=== PATIENT | male | born 1970 | race African-American/Black ===

== ENCOUNTER 2017-01-31 18:52 | Inpatient (IN) | payer MEDICAID, OTHER ==
[~2017-01-31] VITALS: Ht 167.6 cm; Wt 81.8 kg
[~2017-01-31 18:52] MED LIST: ASPI-986 PO; HYDR100T26 PO; LOSA100T14 PO; NEBI10TA2 PO; SERT50TA12 PO; SIMV40TA5 PO
[2017-01-31] MEDS ORDERED: SODIUM CHLORIDE 0.9% 500 ML IV ONE (19:28)
[2017-01-31] MEDS ORDERED: MORPHINE SULFATE 4 MG/ML CPJ (NOT FOR IM USE) IV STA (19:28)
[2017-01-31] MEDS ORDERED: ONDANSETRON HCL 4MG/2ML VIAL IV STA (19:28)
[2017-01-31 19:52] LABS: BASOPHILS % 1.1 % (0.0-2.0); EOSINOPHILS % 3.1 % (0.0-5.0); HEMATOCRIT. 40.4 % (42.0-52.0); HEMOGLOBIN. 13.3 g/dL (14.0-18.0); LYMPHOCYTES % 32.9 % (20.0-50.0); MEAN CORPUSCULAR HEMOGLOBIN 27.1 pg (28.0-32.0); MEAN PLATELET VOLUME 8.6 fl (7.4-10.4); MONOCYTES % 8.7 % (2.0-8.0); NEUTROPHILS % 54.2 % (40.0-76.0); PLATELET 161 x1000/uL (130-400); RED BLOOD CELL COUNT 4.93 mill/uL (4.7-6.1); RED CELL DISTRIBUTION WIDTH 15.3 % (11.6-14.6)
[2017-01-31 20:03] LABS: D-DIMER 0.21 mg/L FEU (<0.50); INR 1.1; PARTIAL THROMBOPLASTIN TIME 27.1 sec (24.0-34.0); PROTHROMBIN TIME 11.5 sec
[2017-01-31 20:08] LABS: CARBON DIOXIDE 28 mEq/L (21-32); CHLORIDE 109 mEq/L (98-107); TROPONIN I < 0.02 ng/mL (0.00-0.04)
[2017-01-31 20:56] LABS: CLARITY URINE CLEAR (CLEAR); COLOR URINE YELLOW (YELLOW); GLUCOSE URINE NEGATIVE (NEGATIVE); KETONES URINE NEGATIVE (NEGATIVE); LEUKOCYTE ESTERASE URINE NEGATIVE (NEGATIVE); NITRITE URINE NEGATIVE (NEGATIVE); OCCULT BLOOD URINE NEGATIVE (NEGATIVE); PH URINE 5.5 (4.5-8.0); PROTEIN URINE TRACE (NEGATIVE); SPECIFIC GRAVITY URINE 1.021 (1.005-1.030); UROBILINOGEN URINE 0.2 E.U./dL (0.2-1.0)
[2017-01-31 21:08] LABS: *AMPHETAMINES SCREEN URINE NEGATIVE (NEGATIVE); *BARBITURATES SCREEN URINE NEGATIVE (NEGATIVE); *BENZODIAZEPINES SCREEN URINE NEGATIVE (NEGATIVE); *COCAINE SCREEN URINE NEGATIVE (NEGATIVE); CANNABINOID URINE SCREEN NEGATIVE (NEGATIVE); METHADONE URINE SCREEN NEGATIVE (NEGATIVE); OPIATES URINE SCREEN NEGATIVE (NEGATIVE); PHENCYCLIDINE URINE SCREEN NEGATIVE (NEGATIVE)
[2017-01-31 22:11] VITALS: BP 144/119
[2017-01-31 22:20] VITALS: BP 144/119
[2017-01-31] MEDS ORDERED: LOSA100T14 PO (23:16)
[2017-01-31] MEDS ORDERED: ISOS30TA6 PO (23:16)
[2017-01-31] MEDS ORDERED: CARV3.1242 PO (23:16)
[2017-01-31] MEDS ORDERED: CLOP75TA33 PO (23:16)
[2017-01-31] MEDS ORDERED: TRIA1CAP6 PO (23:35)
[2017-02-01] MEDS ORDERED: ACETAMINOPHEN 325MG TABLET PO PRN ×2 (00:15→10:00)
[2017-02-01] MEDS ORDERED: NITROGLYCERIN 0.4MG TABLET SL SL PRN (00:15)
[2017-02-01 04:00] VITALS: BP 150/111
[2017-02-01 05:53] LABS: BASOPHILS % 0.6 % (0.0-2.0); EOSINOPHILS % 3.3 % (0.0-5.0); HEMATOCRIT. 39.1 % (42.0-52.0); LYMPHOCYTES % 29.6 % (20.0-50.0); MEAN CORPUSCULAR HEMOGLOBIN 27.4 pg (28.0-32.0); MEAN CORPUSCULAR VOLUME 82.6 fL (80.0-94.0); MEAN PLATELET VOLUME 8.8 fl (7.4-10.4); MONOCYTES % 10.3 % (2.0-8.0); NEUTROPHILS % 56.2 % (40.0-76.0); PLATELET 161 x1000/uL (130-400); RED BLOOD CELL COUNT 4.74 mill/uL (4.7-6.1); RED CELL DISTRIBUTION WIDTH 15.4 % (11.6-14.6)
[2017-02-01 06:39] LABS: CARBON DIOXIDE 30 mEq/L (21-32); CHLORIDE 108 mEq/L (98-107); HDL CHOLESTEROL 38 mg/dL (40-59); LDL CHOLESTEROL 104 mg/dL (5-100); TROPONIN I < 0.02 ng/mL (0.00-0.04)
[2017-02-01 08:00] VITALS: BP 147/109
[2017-02-01] MEDS: CARVEDILOL 3.125 MG TABLET PO SCH ×2 (08:18→17:21)
[2017-02-01] MEDS: LOSARTAN POTASSIUM 100 MG TABLET PO SCH (08:18)
[2017-02-01] MEDS: ASPIRIN 325MG TABLET PO SCH (08:18)
[2017-02-01] MEDS: CLOPIDOGREL 75MG TABLET PO SCH (08:18)
[2017-02-01] MEDS: HYDRALAZINE HCL 100MG TABLET PO SCH ×2 (08:19→17:21)
[2017-02-01] MEDS: ISOSORBIDE MONONITRATE 30MG TABLET SR 24HR PO SCH (08:19)
[2017-02-01] MEDS: ENOXAPARIN 40MG/0.4ML SYR SUBCUT SCH ×2 (08:19→08:23)
[2017-02-01] MEDS ORDERED: TRIAMTERENE/HYDROCHLOROTHIAZIDE 37.5/25MG CAPSULE PO SCH (09:00)
[2017-02-01] MEDS ORDERED: FAMOTIDINE 20MG TABLET PO ONE (09:00)
[2017-02-01] MEDS ORDERED: CLONIDINE 0.2MG TABLET PO PRN (09:45)
[2017-02-01] MEDS ORDERED: ACETAMINOPHEN 500MG TABLET PO PRN (09:45)
[2017-02-01] MEDS ORDERED: CLONIDINE 0.1MG TABLET PO PRN (10:00)
[2017-02-01 11:15] VITALS: BP 142/107
[2017-02-01] MEDS: NITROGLYCERIN OINT 1GM/INCH UDPKT TD SCH ×2 (11:15→17:21)
[2017-02-01] MEDS: TRIAMTERENE/HYDROCHLOROTHIAZIDE 37.5/25MG CAPSULE PO SCH (11:15)
[2017-02-01 16:36] VITALS: BP 133/96
[2017-02-01 20:00] VITALS: BP 130/82
[2017-02-01] MEDS ORDERED: ATORVASTATIN CALCIUM 20MG TABLET PO SCH (21:00)
[2017-02-02] VITALS: BP 133/85
[2017-02-02] MEDS: NITROGLYCERIN OINT 1GM/INCH UDPKT TD SCH ×3 (00:23→11:55)
[2017-02-02 04:00] VITALS: BP 155/124
[2017-02-02 06:41] LABS: BASOPHILS % 0.8 % (0.0-2.0); EOSINOPHILS % 3.6 % (0.0-5.0); HEMATOCRIT. 40.1 % (42.0-52.0); HEMOGLOBIN. 13.3 g/dL (14.0-18.0); LYMPHOCYTES % 27.7 % (20.0-50.0); MEAN CORPUSCULAR HEMOGLOBIN 27.4 pg (28.0-32.0); MEAN CORPUSCULAR VOLUME 82.6 fL (80.0-94.0); MEAN PLATELET VOLUME 8.9 fl (7.4-10.4); MONOCYTES % 8.7 % (2.0-8.0); NEUTROPHILS % 59.2 % (40.0-76.0); PLATELET 157 x1000/uL (130-400); RED BLOOD CELL COUNT 4.86 mill/uL (4.7-6.1); RED CELL DISTRIBUTION WIDTH 15.3 % (11.6-14.6)
[2017-02-02 07:32] LABS: CARBON DIOXIDE 27 mEq/L (21-32); CHLORIDE 103 mEq/L (98-107)
[2017-02-02 07:34] LABS: CREATINE KINASE 126 IU/L (39-308); CREATINE KINASE MB FRACTION < 0.5 ng/mL (0.5-3.6); HDL CHOLESTEROL 34 mg/dL (40-59); LDL CHOLESTEROL 96 mg/dL (5-100); TROPONIN I < 0.02 ng/mL (0.00-0.04)
[2017-02-02] MEDS ORDERED: POTASSIUM CHLORIDE 20MEQ TABLET SR PO NR (08:00)
[2017-02-02] MEDS: CARVEDILOL 3.125 MG TABLET PO SCH (08:13)
[2017-02-02] MEDS: CLOPIDOGREL 75MG TABLET PO SCH (08:13)
[2017-02-02] MEDS: LOSARTAN POTASSIUM 100 MG TABLET PO SCH (08:14)
[2017-02-02] MEDS: HYDRALAZINE HCL 100MG TABLET PO SCH (08:14)
[2017-02-02] MEDS: ASPIRIN 325MG TABLET PO SCH (08:14)
[2017-02-02] MEDS: TRIAMTERENE/HYDROCHLOROTHIAZIDE 37.5/25MG CAPSULE PO SCH (08:14)
[2017-02-02] MEDS: ENOXAPARIN 40MG/0.4ML SYR SUBCUT SCH (08:14)
[2017-02-02] MEDS: ISOSORBIDE MONONITRATE 30MG TABLET SR 24HR PO SCH (08:14)
[2017-02-02] MEDS ORDERED: REGADENOSON 0.4 MG/5 ML IV ONE (08:45)
[2017-02-02 08:59] VITALS: BP_SYST 164; BP_SYST 174; BP_DIAS 117; BP_DIAS 126
[2017-02-02 12:00] VITALS: BP 124/81
[2017-02-02 13:03] VITALS: BP 124/81
[2017-02-02 16:00] VITALS: BP 137/103
== END 2017-02-02 16:25 | disposition home or self-care (01) | DRG 198 ==
LOC: EDBEDREQ 20:43 → ENRESERV 21:23 → ER 22:12 → 5WST 22:15
PROVIDERS: ADMIT Internal Medicine; ATTEND Internal Medicine
DX: R07.89 Other chest pain (principal); I25.2 Old myocardial infarction; I13.0 Hypertensive heart and chronic kidney disease with heart failure and stage 1 through stage 4 chronic kidney disease, or unspecified chronic kidney disease; I50.9 Heart failure, unspecified; I25.10 Atherosclerotic heart disease of native coronary artery without angina pectoris; F32.9 Major depressive disorder, single episode, unspecified; E78.00 Pure hypercholesterolemia, unspecified; E78.5 Hyperlipidemia, unspecified; N18.9 Chronic kidney disease, unspecified; Z95.5 Presence of coronary angioplasty implant and graft; Z82.49 Family history of ischemic heart disease and other diseases of the circulatory system; F41.9 Anxiety disorder, unspecified
CPT/HCPCS: 36415; 71010; 80048; 80053; 80061; 80305; 81001; 82550; 82553; 83690; 83735; 83880; 84443; 84484; 85025; 85379; 85610; 85730; 93005; 96360; 96361; 99285; J1650; J2270; J2405; J7040; J7050

== ENCOUNTER 2018-09-14 19:20 | Inpatient (IN) | payer MEDICAID ==
[~2018-09-14] VITALS: Ht 170.2 cm; Wt 70.8 kg
[~2018-09-14 19:20] MED LIST changes: +CARV3.1242 PO; +CLOP75TA33 PO; +ISOS30TA6 PO; -NEBI10TA2 PO; -SERT50TA12 PO; +TRIA1CAP6 PO
[2018-09-14] MEDS ORDERED: SODIUM CHLORIDE 0.9% 1,000 ML IV ONE (20:18)
[2018-09-14 21:05] LABS: BASOPHILS % 0.8 % (0.0-2.0); EOSINOPHILS % 3.1 % (0.0-5.0); HEMOGLOBIN. 16.1 g/dL (14.0-18.0); LYMPHOCYTES % 31.1 % (20.0-50.0); MEAN CORPUSCULAR HEMOGLOBIN 27.6 pg (28.0-32.0); MEAN CORPUSCULAR VOLUME 83.9 fL (80.0-94.0); MEAN PLATELET VOLUME 9.1 fl (7.4-10.4); MONOCYTES % 7.7 % (2.0-8.0); NEUTROPHILS % 57.3 % (40.0-76.0); PLATELET 208 x1000/uL (130-400); RED BLOOD CELL COUNT 5.84 mill/uL (4.7-6.1); RED CELL DISTRIBUTION WIDTH 15.2 % (11.6-14.6)
[2018-09-14 21:08] LABS: CHLORIDE 107 mEq/L (98-107)
[2018-09-14] MEDS ORDERED: POTASSIUM CHLORIDE INJ 40 MEQ in DEXT 5% WATER 250 ML IV ONE (22:30)
[2018-09-15] MEDS ORDERED: ACETAMINOPHEN 325MG TABLET PO PRN (00:30)
[2018-09-15] MEDS ORDERED: CLONIDINE 0.1MG TABLET PO PRN (00:30)
[2018-09-15] MEDS ORDERED: LORAZEPAM 2MG/ML CPJ IV ONE (01:00)
[2018-09-15 01:19] LABS: CHLORIDE 112 mEq/L (98-107)
[2018-09-15 04:17] VITALS: BP 159/88
[2018-09-15] MEDS ORDERED: ATOR-2 PO (05:32)
[2018-09-15] MEDS ORDERED: LABE200T28 PO (05:32)
[2018-09-15] MEDS ORDERED: ACET-2178 PO (05:32)
[2018-09-15] MEDS ORDERED: DOCU-138 PO (05:32)
[2018-09-15] MEDS ORDERED: MULT-230 PO (05:32)
[2018-09-15] MEDS ORDERED: NIFE60TA94 PO (05:32)
[2018-09-15] MEDS ORDERED: ASPI-1158 PO (05:32)
[2018-09-15] MEDS ORDERED: FAMO20TA8 PO (05:32)
[2018-09-15] MEDS ORDERED: ONDA4TAB5 PO (05:32)
[2018-09-15] MEDS ORDERED: HYDR-4001 PO (05:32)
[2018-09-15 08:00] VITALS: BP 164/105
[2018-09-15] MEDS ORDERED: HYDRALAZINE 20MG/ML VIAL IV PRN (10:45)
[2018-09-15] MEDS: ENOXAPARIN 40MG/0.4ML SYR SUBCUT SCH (11:10)
[2018-09-15 12:00] VITALS: BP 163/112
[2018-09-15] MEDS: ASPIRIN 81MG EC TABLET PO SCH (13:54)
[2018-09-15 13:55] LABS: CREATINE KINASE MB FRACTION 1.5 ng/mL (0.5-3.6)
[2018-09-15 15:47] LABS: CREATINE KINASE MB FRACTION 1.4 ng/mL (0.5-3.6)
[2018-09-15 16:00] VITALS: BP 172/112
[2018-09-15] MEDS: CARVEDILOL 3.125 MG TABLET PO SCH ×2 (16:06→21:57)
[2018-09-15] MEDS: CLONIDINE 0.2MG TABLET PO PRN (16:38)
[2018-09-15] MEDS: LOSARTAN POTASSIUM 50 MG TABLET PO SCH ×2 (16:39→18:15)
[2018-09-15] MEDS: NIFEDIPINE XL 30MG TAB PO SCH ×2 (16:39→18:16)
[2018-09-15] MEDS: HYDRALAZINE 20MG/ML VIAL IV PRN (16:50)
[2018-09-15 16:58] LABS: BG BASE EXCESS 2.2 mmol/L (-2.0-2.0); BG CARBOXYHEMOGLOBIN 0.9 % (0.5-1.5); BG DEOXYHEMOGLOBIN 4.4 % (0.0-5.0); BG FRACTION INSPIRED OXYGEN 21; BG HCO3 ACT 25.4 mmol/L (22.0-26.0); BG METHEMOGLOBIN 0.4 % (0.0-1.5); BG OXYGEN SATURATION 95.5 % (92.0-98.5); BG OXYHEMOGLOBIN 94.3 % (94.0-97.0); BG PCO2 35.4 mmHg (35.0-45.0); BG PH 7.474 (7.350-7.450); BG PO2 75.3 mmHg (75.0-100.0); BG SAMPLE SITE RIGHT RADIAL; BG TOTAL HEMOGLOBIN 15.9 g/dL (12.0-18.0); BG VENT MODE ROOM AIR
[2018-09-15 17:39] VITALS: BP 156/102
[2018-09-15 20:49] VITALS: BP 126/84
[2018-09-15] MEDS: HYDRALAZINE HCL 100MG TABLET PO SCH (22:06)
[2018-09-16] VITALS: BP 117/83
[2018-09-16 04:00] VITALS: BP 147/94
[2018-09-16] MEDS: HYDRALAZINE HCL 100MG TABLET PO SCH ×3 (06:33→22:10)
[2018-09-16 08:00] VITALS: BP 149/100
[2018-09-16] MEDS: NIFEDIPINE XL 30MG TAB PO SCH (08:25)
[2018-09-16] MEDS: CARVEDILOL 3.125 MG TABLET PO SCH ×2 (08:25→22:10)
[2018-09-16] MEDS: LOSARTAN POTASSIUM 50 MG TABLET PO SCH ×2 (08:25→17:00)
[2018-09-16] MEDS: ASPIRIN 81MG EC TABLET PO SCH (08:25)
[2018-09-16] MEDS: ENOXAPARIN 40MG/0.4ML SYR SUBCUT SCH (08:26)
[2018-09-16] MEDS: CLOPIDOGREL 75MG TABLET PO SCH (09:00)
[2018-09-16 12:00] VITALS: BP 144/89
[2018-09-16] MEDS ORDERED: IOHEXOL-350 100 ML BOTTLE ONE (12:42)
[2018-09-16 15:52] LABS: BASOPHILS % 0.6 % (0.0-2.0); EOSINOPHILS % 2.3 % (0.0-5.0); HEMOGLOBIN. 15.4 g/dL (14.0-18.0); MEAN CORPUSCULAR HEMOGLOBIN 27.4 pg (28.0-32.0); MEAN PLATELET VOLUME 9.2 fl (7.4-10.4); MONOCYTES % 7.1 % (2.0-8.0); PLATELET 232 x1000/uL (130-400); RED CELL DISTRIBUTION WIDTH 15.8 % (11.6-14.6)
[2018-09-16 15:57] LABS: CHLORIDE 108 mEq/L (98-107)
[2018-09-16 16:00] VITALS: BP 124/86
[2018-09-16 16:01] LABS: ETHANOL BLOOD < 10 mg/dL
[2018-09-16 16:04] LABS: LDL CHOLESTEROL 177 mg/dL (5-100)
[2018-09-16 16:06] LABS: HDL CHOLESTEROL 37 mg/dL (40-59); LDL CHOLESTEROL 175 mg/dL (5-100); T4 FREE 0.91 ng/dL (0.76-1.46)
[2018-09-16 16:07] LABS: HDL CHOLESTEROL 37 mg/dL (40-59)
[2018-09-16 16:23] LABS: FOLIC ACID (FOLATE) SERUM 15.6 ng/mL (>5.38)
[2018-09-16 20:00] VITALS: BP 141/92
[2018-09-16] MEDS: ATORVASTATIN CALCIUM 10MG TABLET PO SCH (22:06)
[2018-09-16] MEDS: NIFEDIPINE XL 60MG TAB PO SCH (22:08)
[2018-09-17] VITALS (8 sets, daily range): BP systolic 127–162; BP diastolic 82–114
[2018-09-17 06:55] LABS: EOSINOPHILS % 3.5 % (0.0-5.0); HEMATOCRIT. 47.8 % (42.0-52.0); HEMOGLOBIN. 15.8 g/dL (14.0-18.0); LYMPHOCYTES % 39.4 % (20.0-50.0); MEAN CORPUSCULAR HEMOGLOBIN 27.8 pg (28.0-32.0); MEAN CORPUSCULAR VOLUME 84.3 fL (80.0-94.0); MEAN PLATELET VOLUME 9.4 fl (7.4-10.4); MONOCYTES % 7.6 % (2.0-8.0); NEUTROPHILS % 48.5 % (40.0-76.0); PLATELET 203 x1000/uL (130-400); RED BLOOD CELL COUNT 5.66 mill/uL (4.7-6.1); RED CELL DISTRIBUTION WIDTH 15.6 % (11.6-14.6)
[2018-09-17] MEDS: CLOPIDOGREL 75MG TABLET PO SCH (08:30)
[2018-09-17] MEDS: LOSARTAN POTASSIUM 50 MG TABLET PO SCH ×2 (08:30→17:00)
[2018-09-17] MEDS: ASPIRIN 81MG EC TABLET PO SCH (08:30)
[2018-09-17] MEDS: NIFEDIPINE XL 60MG TAB PO SCH ×2 (08:30→21:00)
[2018-09-17] MEDS: CARVEDILOL 3.125 MG TABLET PO SCH ×2 (08:30→21:00)
[2018-09-17] MEDS: ENOXAPARIN 40MG/0.4ML SYR SUBCUT SCH (08:31)
[2018-09-17] MEDS: HYDRALAZINE HCL 100MG TABLET PO SCH ×2 (14:00→22:00)
[2018-09-17] MEDS: HYDRALAZINE 20MG/ML VIAL IV PRN (14:27)
[2018-09-17] MEDS: CYANOCOBALAMIN 1000MCG/ML VIAL IM SCH (16:56)
[2018-09-17] MEDS ORDERED: KCL 20MEQ/100ML PREMIX 100 ML IV NR (18:00)
[2018-09-17] MEDS: ATORVASTATIN CALCIUM 10MG TABLET PO SCH (21:00)
[2018-09-18] VITALS: BP 169/107
[2018-09-18] MEDS: HYDRALAZINE 20MG/ML VIAL IV PRN ×2 (00:12→04:31)
[2018-09-18 04:00] VITALS: BP 165/105
[2018-09-18 08:00] VITALS: BP 146/106
[2018-09-18] MEDS: LOSARTAN POTASSIUM 50 MG TABLET PO SCH ×2 (09:00→17:43)
[2018-09-18] MEDS: NIFEDIPINE XL 60MG TAB PO SCH ×2 (09:00→20:40)
[2018-09-18] MEDS: CARVEDILOL 3.125 MG TABLET PO SCH ×2 (09:00→20:40)
[2018-09-18] MEDS: ASPIRIN 81MG EC TABLET PO SCH ×2 (09:00→17:42)
[2018-09-18] MEDS: CLOPIDOGREL 75MG TABLET PO SCH ×2 (09:00→17:42)
[2018-09-18 11:24] LABS: BASOPHILS % 0.7 % (0.0-2.0); EOSINOPHILS % 1.8 % (0.0-5.0); HEMATOCRIT. 44.9 % (42.0-52.0); HEMOGLOBIN. 14.6 g/dL (14.0-18.0); LYMPHOCYTES % 22.9 % (20.0-50.0); MEAN CORPUSCULAR HEMOGLOBIN 27.4 pg (28.0-32.0); MEAN CORPUSCULAR VOLUME 84.2 fL (80.0-94.0); MEAN PLATELET VOLUME 9.7 fl (7.4-10.4); MONOCYTES % 5.8 % (2.0-8.0); NEUTROPHILS % 68.8 % (40.0-76.0); PLATELET 210 x1000/uL (130-400); RED BLOOD CELL COUNT 5.33 mill/uL (4.7-6.1); RED CELL DISTRIBUTION WIDTH 15.6 % (11.6-14.6)
[2018-09-18 11:34] LABS: CHLORIDE 111 mEq/L (98-107)
[2018-09-18 12:15] VITALS: BP 166/118
[2018-09-18] MEDS: CYANOCOBALAMIN 1000MCG/ML VIAL IM SCH (13:17)
[2018-09-18] MEDS: ENOXAPARIN 40MG/0.4ML SYR SUBCUT SCH (13:18)
[2018-09-18] MEDS: HYDRALAZINE HCL 100MG TABLET PO SCH ×2 (14:00→21:50)
[2018-09-18 15:30] VITALS: BP 184/119
[2018-09-18] MEDS ORDERED: LABETALOL HCL 20MG/4ML CARPUJECT IV NR (16:30)
[2018-09-18] MEDS: CLONIDINE 0.2MG TABLET PO PRN (17:43)
[2018-09-18] MEDS ORDERED: LORAZEPAM 2MG/ML CPJ IV PRN (18:15)
[2018-09-18 20:00] VITALS: BP 176/116
[2018-09-18] MEDS: ATORVASTATIN CALCIUM 10MG TABLET PO SCH (20:39)
[2018-09-18] MEDS: CLONIDINE 0.1MG TABLET PO SCH (21:50)
[2018-09-19] VITALS: BP 123/84
[2018-09-19 04:00] VITALS: BP 128/89
[2018-09-19] MEDS: CLONIDINE 0.1MG TABLET PO SCH ×3 (05:11→23:01)
[2018-09-19] MEDS: HYDRALAZINE HCL 100MG TABLET PO SCH ×3 (05:11→23:01)
[2018-09-19 07:05] LABS: BASOPHILS % 1.1 % (0.0-2.0); EOSINOPHILS % 3.9 % (0.0-5.0); HEMATOCRIT. 45.7 % (42.0-52.0); HEMOGLOBIN. 14.9 g/dL (14.0-18.0); LYMPHOCYTES % 31.2 % (20.0-50.0); MEAN CORPUSCULAR HEMOGLOBIN 27.5 pg (28.0-32.0); MEAN CORPUSCULAR VOLUME 84.6 fL (80.0-94.0); MEAN PLATELET VOLUME 9.4 fl (7.4-10.4); MONOCYTES % 7.7 % (2.0-8.0); NEUTROPHILS % 56.1 % (40.0-76.0); PLATELET 207 x1000/uL (130-400); RED CELL DISTRIBUTION WIDTH 15.3 % (11.6-14.6)
[2018-09-19 07:11] LABS: CHLORIDE 109 mEq/L (98-107)
[2018-09-19 08:00] VITALS: BP 133/96
[2018-09-19] MEDS: NIFEDIPINE XL 60MG TAB PO SCH ×2 (09:43→21:00)
[2018-09-19] MEDS: ASPIRIN 81MG EC TABLET PO SCH (09:43)
[2018-09-19] MEDS: LOSARTAN POTASSIUM 50 MG TABLET PO SCH ×2 (09:43→17:25)
[2018-09-19] MEDS: CLOPIDOGREL 75MG TABLET PO SCH (09:43)
[2018-09-19] MEDS: CARVEDILOL 3.125 MG TABLET PO SCH ×2 (09:44→21:40)
[2018-09-19] MEDS: ENOXAPARIN 40MG/0.4ML SYR SUBCUT SCH (09:44)
[2018-09-19] MEDS: CYANOCOBALAMIN 1000MCG/ML VIAL IM SCH (09:44)
[2018-09-19 12:00] VITALS: BP 124/94
[2018-09-19] MEDS ORDERED: SODIUM CHLORIDE 0.9% 500 ML IV ONE (12:45)
[2018-09-19] MEDS: SODIUM CHLORIDE 0.45% 1,000 ML IV SCH (15:35)
[2018-09-19 16:00] VITALS: BP 137/93
[2018-09-19 20:00] VITALS: BP 140/102
[2018-09-19] MEDS: ATORVASTATIN CALCIUM 10MG TABLET PO SCH (21:37)
[2018-09-20 00:01] VITALS: BP 129/94
[2018-09-20] MEDS: SODIUM CHLORIDE 0.45% 1,000 ML IV SCH ×2 (02:53→18:11)
[2018-09-20 04:03] VITALS: BP 140/96
[2018-09-20] MEDS: CLONIDINE 0.1MG TABLET PO SCH ×3 (06:14→22:45)
[2018-09-20] MEDS: HYDRALAZINE HCL 100MG TABLET PO SCH ×3 (06:14→22:45)
[2018-09-20] MEDS: CLOPIDOGREL 75MG TABLET PO SCH (08:10)
[2018-09-20] MEDS: LOSARTAN POTASSIUM 50 MG TABLET PO SCH ×2 (08:10→18:13)
[2018-09-20] MEDS: CYANOCOBALAMIN 1000MCG/ML VIAL IM SCH (08:10)
[2018-09-20] MEDS: CARVEDILOL 3.125 MG TABLET PO SCH ×2 (08:11→21:00)
[2018-09-20] MEDS: NIFEDIPINE XL 60MG TAB PO SCH ×2 (08:12→20:59)
[2018-09-20] MEDS: ASPIRIN 81MG EC TABLET PO SCH (08:12)
[2018-09-20] MEDS: ENOXAPARIN 40MG/0.4ML SYR SUBCUT SCH (08:13)
[2018-09-20 08:29] VITALS: BP 132/86
[2018-09-20 10:05] LABS: CHLORIDE 111 mEq/L (98-107)
[2018-09-20 12:00] VITALS: BP 142/90
[2018-09-20 13:07] LABS: ANTI-THROMBIN ACTIVITY 108 % (75-135); DRVVT LA 40.3 sec (0.0-47.0); PROTEIN C FUNCTIONAL 98 % (73-180); PTT-LA 49.6 sec (0.0-51.9)
[2018-09-20 14:18] LABS: LUPUS ANTICOAG INTERPRETATION Comment: (.)
[2018-09-20 16:00] VITALS: BP 142/92
[2018-09-20] MEDS: LACTULOSE 20G/30ML UDC PO SCH ×2 (18:13→20:59)
[2018-09-20 20:00] VITALS: BP 159/99
[2018-09-20] MEDS: ATORVASTATIN CALCIUM 10MG TABLET PO SCH (20:59)
[2018-09-21] VITALS (7 sets, daily range): BP systolic 112–193; BP diastolic 67–120
[2018-09-21 04:12] LABS: ANTI-CARDIOLIPIN AB IGA < 9 APL U/mL (0-11); ANTI-CARDIOLIPIN AB IGG < 9 GPL U/mL (0-14); ANTI-CARDIOLIPIN AB IGM 29 MPL U/mL (0-12)
[2018-09-21] MEDS: CLONIDINE 0.1MG TABLET PO SCH ×3 (06:00→23:09)
[2018-09-21] MEDS: HYDRALAZINE HCL 100MG TABLET PO SCH ×3 (06:00→23:08)
[2018-09-21] MEDS: SODIUM CHLORIDE 0.45% 1,000 ML IV SCH ×3 (06:30→19:50)
[2018-09-21 08:06] LABS: BASOPHILS % 0.7 % (0.0-2.0); EOSINOPHILS % 2.4 % (0.0-5.0); HEMATOCRIT. 45.9 % (42.0-52.0); LYMPHOCYTES % 19.8 % (20.0-50.0); MEAN CORPUSCULAR HEMOGLOBIN 27.6 pg (28.0-32.0); MEAN CORPUSCULAR VOLUME 84.3 fL (80.0-94.0); MEAN PLATELET VOLUME 9.4 fl (7.4-10.4); MONOCYTES % 5.7 % (2.0-8.0); NEUTROPHILS % 71.4 % (40.0-76.0); PLATELET 188 x1000/uL (130-400); RED BLOOD CELL COUNT 5.44 mill/uL (4.7-6.1); RED CELL DISTRIBUTION WIDTH 15.3 % (11.6-14.6)
[2018-09-21 08:43] LABS: CHLORIDE 108 mEq/L (98-107)
[2018-09-21] MEDS: CYANOCOBALAMIN 1000MCG/ML VIAL IM SCH (09:31)
[2018-09-21] MEDS: LACTULOSE 20G/30ML UDC PO SCH (09:31)
[2018-09-21] MEDS: CLOPIDOGREL 75MG TABLET PO SCH (09:32)
[2018-09-21] MEDS: LOSARTAN POTASSIUM 50 MG TABLET PO SCH ×2 (09:33→17:16)
[2018-09-21] MEDS: CARVEDILOL 3.125 MG TABLET PO SCH ×2 (09:33→21:02)
[2018-09-21] MEDS: NIFEDIPINE XL 60MG TAB PO SCH ×2 (09:33→21:02)
[2018-09-21] MEDS: ENOXAPARIN 40MG/0.4ML SYR SUBCUT SCH (09:33)
[2018-09-21] MEDS: ASPIRIN 81MG EC TABLET PO SCH (09:33)
[2018-09-21] MEDS ORDERED: KCL 20MEQ/100ML PREMIX 100 ML IV SCH (13:00)
[2018-09-21] MEDS: HYDRALAZINE 20MG/ML VIAL IV PRN (13:47)
[2018-09-21] MEDS ORDERED: BISACODYL 10MG SUPP PR NR (15:30)
[2018-09-21] MEDS ORDERED: SORBITOL 70% SOLN 30ML PO NR (15:30)
[2018-09-21] MEDS: DOCUSATE SODIUM 100MG CAPSULE PO SCH (17:00)
[2018-09-21] MEDS: CLONIDINE 0.2MG TABLET PO PRN (17:16)
[2018-09-21] MEDS: POLYETHYLENE GLYCOL 3350 (17GM) 1 DOSE PACK PO SCH (21:01)
[2018-09-21] MEDS: ATORVASTATIN CALCIUM 10MG TABLET PO SCH (21:02)
[2018-09-22 03:51] VITALS: BP 145/99
[2018-09-22] MEDS: CLONIDINE 0.1MG TABLET PO SCH ×3 (06:10→21:58)
[2018-09-22] MEDS: HYDRALAZINE HCL 100MG TABLET PO SCH ×3 (06:10→21:57)
[2018-09-22 06:23] LABS: BASOPHILS % 0.4 % (0.0-2.0); EOSINOPHILS % 1.9 % (0.0-5.0); HEMATOCRIT. 43.5 % (42.0-52.0); HEMOGLOBIN. 14.4 g/dL (14.0-18.0); LYMPHOCYTES % 25.7 % (20.0-50.0); MEAN CORPUSCULAR HEMOGLOBIN 27.7 pg (28.0-32.0); MEAN CORPUSCULAR VOLUME 83.4 fL (80.0-94.0); MEAN PLATELET VOLUME 9.7 fl (7.4-10.4); MONOCYTES % 6.6 % (2.0-8.0); NEUTROPHILS % 65.4 % (40.0-76.0); PLATELET 193 x1000/uL (130-400); RED BLOOD CELL COUNT 5.21 mill/uL (4.7-6.1); RED CELL DISTRIBUTION WIDTH 14.8 % (11.6-14.6)
[2018-09-22 06:33] LABS: CHLORIDE 107 mEq/L (98-107)
[2018-09-22 08:00] VITALS: BP 153/115
[2018-09-22] MEDS: CARVEDILOL 3.125 MG TABLET PO SCH ×2 (09:42→21:58)
[2018-09-22] MEDS: CLOPIDOGREL 75MG TABLET PO SCH (09:42)
[2018-09-22] MEDS: ASPIRIN 81MG EC TABLET PO SCH (09:42)
[2018-09-22] MEDS: ENOXAPARIN 40MG/0.4ML SYR SUBCUT SCH (09:43)
[2018-09-22] MEDS: DOCUSATE SODIUM 100MG CAPSULE PO SCH ×2 (09:43→18:36)
[2018-09-22] MEDS: NIFEDIPINE XL 60MG TAB PO SCH ×2 (09:43→22:16)
[2018-09-22] MEDS: LOSARTAN POTASSIUM 50 MG TABLET PO SCH ×2 (09:43→18:36)
[2018-09-22 12:00] VITALS: BP 147/107
[2018-09-22 15:10] LABS: BARBITURATE SCREEN Negative ug/mL (Cutoff:0.1); BENZODIAZEPINE SCREEN Negative ng/mL (Cutoff:20); OPIATES SCREEN Negative ng/mL (Cutoff:5); PHENCYCLIDINE SCREEN Negative ng/mL (Cutoff:8)
[2018-09-22] MEDS: SODIUM CHLORIDE 0.45% 1,000 ML IV SCH ×2 (15:50→22:15)
[2018-09-22 16:00] VITALS: BP 149/87
[2018-09-22] MEDS: LACTULOSE 20G/30ML UDC PO SCH ×2 (18:36→21:58)
[2018-09-22 20:52] VITALS: BP 173/109
[2018-09-22] MEDS: ATORVASTATIN CALCIUM 10MG TABLET PO SCH (21:58)
[2018-09-22] MEDS: POLYETHYLENE GLYCOL 3350 (17GM) 1 DOSE PACK PO SCH (21:59)
[2018-09-23] VITALS (7 sets, daily range): BP systolic 109–186; BP diastolic 64–109
[2018-09-23] MEDS: HYDRALAZINE HCL 100MG TABLET PO SCH ×3 (06:35→21:23)
[2018-09-23] MEDS: CLONIDINE 0.1MG TABLET PO SCH ×3 (06:35→21:23)
[2018-09-23 07:17] LABS: CHLORIDE 108 mEq/L (98-107)
[2018-09-23] MEDS: NIFEDIPINE XL 60MG TAB PO SCH ×2 (09:00→21:26)
[2018-09-23] MEDS: LOSARTAN POTASSIUM 50 MG TABLET PO SCH ×2 (09:00→18:57)
[2018-09-23] MEDS ORDERED: POTASSIUM CHLORIDE 20MEQ/PACKET PO SCH (10:00)
[2018-09-23] MEDS: CARVEDILOL 3.125 MG TABLET PO SCH ×2 (10:17→21:23)
[2018-09-23] MEDS: CLOPIDOGREL 75MG TABLET PO SCH (10:17)
[2018-09-23] MEDS: ASPIRIN 81MG EC TABLET PO SCH (10:17)
[2018-09-23] MEDS: ENOXAPARIN 40MG/0.4ML SYR SUBCUT SCH (10:18)
[2018-09-23] MEDS: SODIUM CHLORIDE 0.45% 1,000 ML IV SCH (10:23)
[2018-09-23] MEDS: DOCUSATE SODIUM 100MG CAPSULE PO SCH ×2 (10:28→18:57)
[2018-09-23] MEDS: ATORVASTATIN CALCIUM 10MG TABLET PO SCH (21:22)
[2018-09-23] MEDS: LACTULOSE 20G/30ML UDC PO SCH (21:22)
[2018-09-23] MEDS: POLYETHYLENE GLYCOL 3350 (17GM) 1 DOSE PACK PO SCH (21:23)
[2018-09-24] VITALS: BP 147/88
[2018-09-24] MEDS: SODIUM CHLORIDE 0.45% 1,000 ML IV SCH ×2 (01:10→14:30)
[2018-09-24 04:00] VITALS: BP 135/89
[2018-09-24] MEDS: CLONIDINE 0.1MG TABLET PO SCH ×3 (06:46→22:00)
[2018-09-24] MEDS: HYDRALAZINE HCL 100MG TABLET PO SCH ×3 (06:46→22:00)
[2018-09-24 08:00] VITALS: BP 147/99
[2018-09-24] MEDS: CARVEDILOL 3.125 MG TABLET PO SCH ×3 (09:00→21:00)
[2018-09-24] MEDS: LOSARTAN POTASSIUM 50 MG TABLET PO SCH ×3 (09:00→18:23)
[2018-09-24] MEDS: DOCUSATE SODIUM 100MG CAPSULE PO SCH ×3 (09:00→18:23)
[2018-09-24] MEDS: CLOPIDOGREL 75MG TABLET PO SCH ×2 (09:00→10:57)
[2018-09-24] MEDS: NIFEDIPINE XL 60MG TAB PO SCH ×3 (09:00→21:00)
[2018-09-24] MEDS: ASPIRIN 81MG EC TABLET PO SCH ×2 (09:00→10:59)
[2018-09-24] MEDS: ENOXAPARIN 40MG/0.4ML SYR SUBCUT SCH (09:10)
[2018-09-24 12:37] VITALS: BP 144/93
[2018-09-24] MEDS: SERTRALINE HCL 25MG TABLET PO SCH (14:07)
[2018-09-24 16:44] LABS: CHLORIDE 110 mEq/L (98-107)
[2018-09-24 16:54] VITALS: BP 134/96
[2018-09-24 20:57] VITALS: BP 146/96
[2018-09-24] MEDS: POLYETHYLENE GLYCOL 3350 (17GM) 1 DOSE PACK PO SCH (21:00)
[2018-09-24] MEDS: ATORVASTATIN CALCIUM 10MG TABLET PO SCH (21:00)
[2018-09-24] MEDS: LACTULOSE 20G/30ML UDC PO SCH (21:00)
[2018-09-25] VITALS (7 sets, daily range): BP systolic 141–182; BP diastolic 82–106
[2018-09-25] MEDS: SODIUM CHLORIDE 0.45% 1,000 ML IV SCH ×2 (03:44→18:32)
[2018-09-25] MEDS: CLONIDINE 0.1MG TABLET PO SCH ×2 (05:27→11:57)
[2018-09-25] MEDS: HYDRALAZINE HCL 100MG TABLET PO SCH ×3 (05:27→21:20)
[2018-09-25] MEDS: SERTRALINE HCL 25MG TABLET PO SCH ×2 (09:00→14:00)
[2018-09-25] MEDS: LOSARTAN POTASSIUM 50 MG TABLET PO SCH ×3 (09:00→18:31)
[2018-09-25] MEDS: ASPIRIN 81MG EC TABLET PO SCH ×2 (09:00→14:01)
[2018-09-25] MEDS: ENOXAPARIN 40MG/0.4ML SYR SUBCUT SCH ×2 (09:00→14:02)
[2018-09-25] MEDS: DOCUSATE SODIUM 100MG CAPSULE PO SCH ×2 (09:00→18:31)
[2018-09-25] MEDS: CARVEDILOL 3.125 MG TABLET PO SCH ×2 (09:00→20:40)
[2018-09-25] MEDS: CLOPIDOGREL 75MG TABLET PO SCH ×2 (09:00→14:01)
[2018-09-25] MEDS: NIFEDIPINE XL 60MG TAB PO SCH ×3 (09:00→20:40)
[2018-09-25] MEDS: HYDRALAZINE 20MG/ML VIAL IV PRN (12:27)
[2018-09-25] MEDS ORDERED: POTASSIUM CHLORIDE 20MEQ TABLET SR PO NR (14:00)
[2018-09-25] MEDS ORDERED: CLONIDINE 0.1MG TABLET PO PRN (14:15)
[2018-09-25] MEDS: ATORVASTATIN CALCIUM 10MG TABLET PO SCH (20:50)
[2018-09-25] MEDS: LACTULOSE 20G/30ML UDC PO SCH (20:50)
[2018-09-25] MEDS: POLYETHYLENE GLYCOL 3350 (17GM) 1 DOSE PACK PO SCH (20:50)
[2018-09-25] MEDS: CLONIDINE 0.2MG TABLET PO SCH (21:21)
[2018-09-25 22:10] LABS: BASOPHILS % 0.8 % (0.0-2.0); EOSINOPHILS % 1.7 % (0.0-5.0); HEMATOCRIT. 44.4 % (42.0-52.0); HEMOGLOBIN. 14.5 g/dL (14.0-18.0); LYMPHOCYTES % 29.8 % (20.0-50.0); MEAN CORPUSCULAR HEMOGLOBIN 27.4 pg (28.0-32.0); MEAN CORPUSCULAR VOLUME 83.9 fL (80.0-94.0); MEAN PLATELET VOLUME 9.7 fl (7.4-10.4); MONOCYTES % 6.4 % (2.0-8.0); NEUTROPHILS % 61.3 % (40.0-76.0); PLATELET 185 x1000/uL (130-400); RED BLOOD CELL COUNT 5.29 mill/uL (4.7-6.1); RED CELL DISTRIBUTION WIDTH 14.9 % (11.6-14.6)
[2018-09-25 22:17] LABS: CHLORIDE 108 mEq/L (98-107)
[2018-09-26] VITALS (8 sets, daily range): BP systolic 133–173; BP diastolic 82–114
[2018-09-26] MEDS: HYDRALAZINE 20MG/ML VIAL IV PRN ×2 (04:28→17:14)
[2018-09-26] MEDS: HYDRALAZINE HCL 100MG TABLET PO SCH ×3 (05:24→21:12)
[2018-09-26] MEDS: CLONIDINE 0.2MG TABLET PO SCH ×3 (05:24→21:13)
[2018-09-26] MEDS: SODIUM CHLORIDE 0.45% 1,000 ML IV SCH ×2 (05:26→20:34)
[2018-09-26] MEDS: LOSARTAN POTASSIUM 50 MG TABLET PO SCH ×2 (09:28→17:00)
[2018-09-26] MEDS: ASPIRIN 81MG EC TABLET PO SCH (09:28)
[2018-09-26] MEDS: DOCUSATE SODIUM 100MG CAPSULE PO SCH ×2 (09:28→17:00)
[2018-09-26] MEDS: CLOPIDOGREL 75MG TABLET PO SCH (09:28)
[2018-09-26] MEDS: NIFEDIPINE XL 60MG TAB PO SCH ×2 (09:29→20:43)
[2018-09-26] MEDS: SERTRALINE HCL 25MG TABLET PO SCH (09:29)
[2018-09-26] MEDS: CARVEDILOL 3.125 MG TABLET PO SCH ×2 (09:29→20:43)
[2018-09-26] MEDS ORDERED: KCL 20MEQ/100ML PREMIX 100 ML IV SCH ×2 (10:00→21:00)
[2018-09-26 10:01] LABS: CHLORIDE 107 mEq/L (98-107)
[2018-09-26 10:09] LABS: EOSINOPHILS % 2.3 % (0.0-5.0); HEMATOCRIT. 41.1 % (42.0-52.0); HEMOGLOBIN. 13.2 g/dL (14.0-18.0); LYMPHOCYTES % 26.6 % (20.0-50.0); MEAN PLATELET VOLUME 9.9 fl (7.4-10.4); MONOCYTES % 7.9 % (2.0-8.0); NEUTROPHILS % 62.2 % (40.0-76.0); PLATELET 177 x1000/uL (130-400); RED BLOOD CELL COUNT 4.89 mill/uL (4.7-6.1)
[2018-09-26] MEDS: POLYETHYLENE GLYCOL 3350 (17GM) 1 DOSE PACK PO SCH (20:36)
[2018-09-26] MEDS: LACTULOSE 20G/30ML UDC PO SCH (20:36)
[2018-09-26] MEDS: ATORVASTATIN CALCIUM 10MG TABLET PO SCH (20:43)
[2018-09-27 04:00] VITALS: BP 197/119
[2018-09-27] MEDS: HYDRALAZINE HCL 100MG TABLET PO SCH ×4 (05:05→22:57)
[2018-09-27] MEDS: CLONIDINE 0.2MG TABLET PO SCH ×3 (05:06→22:57)
[2018-09-27 08:00] VITALS: BP 189/113
[2018-09-27] MEDS: CLOPIDOGREL 75MG TABLET PO SCH ×2 (09:51→15:01)
[2018-09-27] MEDS: LOSARTAN POTASSIUM 50 MG TABLET PO SCH ×2 (09:52→17:00)
[2018-09-27] MEDS: DOCUSATE SODIUM 100MG CAPSULE PO SCH ×2 (09:52→17:00)
[2018-09-27] MEDS: ASPIRIN 81MG EC TABLET PO SCH ×2 (09:52→14:58)
[2018-09-27] MEDS: NIFEDIPINE XL 60MG TAB PO SCH ×3 (09:52→22:58)
[2018-09-27] MEDS: SERTRALINE HCL 25MG TABLET PO SCH ×2 (09:52→15:00)
[2018-09-27] MEDS: CARVEDILOL 3.125 MG TABLET PO SCH ×2 (09:53→22:58)
[2018-09-27] MEDS: ENOXAPARIN 40MG/0.4ML SYR SUBCUT SCH ×2 (09:53→15:02)
[2018-09-27 12:00] VITALS: BP 143/96
[2018-09-27] MEDS ORDERED: POTASSIUM CHLORIDE 20MEQ TABLET SR PO NR (16:00)
[2018-09-27 20:00] VITALS: BP 125/75
[2018-09-27] MEDS: POLYETHYLENE GLYCOL 3350 (17GM) 1 DOSE PACK PO SCH (21:00)
[2018-09-27] MEDS: ATORVASTATIN CALCIUM 10MG TABLET PO SCH (22:56)
[2018-09-27] MEDS: LACTULOSE 20G/30ML UDC PO SCH (22:58)
[2018-09-28] VITALS: BP 130/77
[2018-09-28] MEDS ORDERED: KCL 20MEQ/100ML PREMIX 100 ML IV SCH (01:00)
[2018-09-28] MEDS: SODIUM CHLORIDE 0.45% 1,000 ML IV SCH ×4 (03:45→21:56)
[2018-09-28 04:00] VITALS: BP 146/93
[2018-09-28] MEDS: CLONIDINE 0.2MG TABLET PO SCH ×3 (05:55→21:44)
[2018-09-28] MEDS: HYDRALAZINE HCL 100MG TABLET PO SCH ×3 (05:56→21:43)
[2018-09-28 07:13] LABS: BASOPHILS % 0.6 % (0.0-2.0); EOSINOPHILS % 2.7 % (0.0-5.0); HEMATOCRIT. 40.1 % (42.0-52.0); LYMPHOCYTES % 26.1 % (20.0-50.0); MEAN CORPUSCULAR HEMOGLOBIN 27.1 pg (28.0-32.0); MEAN PLATELET VOLUME 9.9 fl (7.4-10.4); MONOCYTES % 8.4 % (2.0-8.0); NEUTROPHILS % 62.2 % (40.0-76.0); PLATELET 177 x1000/uL (130-400); RED BLOOD CELL COUNT 4.77 mill/uL (4.7-6.1); RED CELL DISTRIBUTION WIDTH 14.8 % (11.6-14.6)
[2018-09-28 08:00] VITALS: BP 120/77
[2018-09-28] MEDS: ASPIRIN 81MG EC TABLET PO SCH ×2 (08:24→09:00)
[2018-09-28] MEDS: CARVEDILOL 3.125 MG TABLET PO SCH ×2 (08:24→21:43)
[2018-09-28] MEDS: SERTRALINE HCL 25MG TABLET PO SCH ×2 (08:24→09:00)
[2018-09-28] MEDS: ENOXAPARIN 40MG/0.4ML SYR SUBCUT SCH (08:24)
[2018-09-28] MEDS: CLOPIDOGREL 75MG TABLET PO SCH ×2 (08:25→09:00)
[2018-09-28] MEDS: DOCUSATE SODIUM 100MG CAPSULE PO SCH ×3 (08:25→17:00)
[2018-09-28] MEDS: NIFEDIPINE XL 60MG TAB PO SCH ×3 (08:25→21:44)
[2018-09-28] MEDS: LOSARTAN POTASSIUM 50 MG TABLET PO SCH ×2 (08:26→17:00)
[2018-09-28 12:00] VITALS: BP 105/61
[2018-09-28 15:46] VITALS: BP 124/86
[2018-09-28 20:57] VITALS: BP 152/94
[2018-09-28] MEDS: LACTULOSE 20G/30ML UDC PO SCH (21:43)
[2018-09-28] MEDS: POLYETHYLENE GLYCOL 3350 (17GM) 1 DOSE PACK PO SCH (21:43)
[2018-09-28] MEDS: ATORVASTATIN CALCIUM 10MG TABLET PO SCH (21:43)
[2018-09-29 00:59] VITALS: BP 146/89
[2018-09-29 04:00] VITALS: BP 128/95
[2018-09-29] MEDS: HYDRALAZINE HCL 100MG TABLET PO SCH ×3 (06:00→21:31)
[2018-09-29] MEDS: CLONIDINE 0.2MG TABLET PO SCH ×3 (06:00→21:31)
[2018-09-29 08:00] VITALS: BP 152/91
[2018-09-29] MEDS ORDERED: GADOBENATE DIMEGLUMINE 529 MG/ML 10ML IV ONE (08:05)
[2018-09-29] MEDS: SERTRALINE HCL 25MG TABLET PO SCH (09:00)
[2018-09-29] MEDS: LOSARTAN POTASSIUM 50 MG TABLET PO SCH ×2 (09:02→16:10)
[2018-09-29] MEDS: NIFEDIPINE XL 60MG TAB PO SCH ×2 (09:03→21:00)
[2018-09-29] MEDS: DOCUSATE SODIUM 100MG CAPSULE PO SCH ×2 (09:04→16:10)
[2018-09-29] MEDS: ENOXAPARIN 40MG/0.4ML SYR SUBCUT SCH (09:04)
[2018-09-29] MEDS: CARVEDILOL 3.125 MG TABLET PO SCH (09:04)
[2018-09-29] MEDS: CLOPIDOGREL 75MG TABLET PO SCH (09:04)
[2018-09-29] MEDS: ASPIRIN 81MG EC TABLET PO SCH (09:04)
[2018-09-29 11:59] VITALS: BP 160/97
[2018-09-29] MEDS: SODIUM CHLORIDE 0.45% 1,000 ML IV SCH (14:30)
[2018-09-29 16:09] VITALS: BP 173/104
[2018-09-29] MEDS ORDERED: HYDRALAZINE 20MG/ML VIAL IV PRN (16:30)
[2018-09-29 20:00] VITALS: BP 185/112
[2018-09-29] MEDS: ATORVASTATIN CALCIUM 10MG TABLET PO SCH (21:00)
[2018-09-29] MEDS: POLYETHYLENE GLYCOL 3350 (17GM) 1 DOSE PACK PO SCH (21:00)
[2018-09-29] MEDS: LACTULOSE 20G/30ML UDC PO SCH (21:00)
[2018-09-29] MEDS: CARVEDILOL 6.25 MG TABLET PO SCH (21:00)
[2018-09-30] VITALS: BP 184/97
[2018-09-30] MEDS: SODIUM CHLORIDE 0.45% 1,000 ML IV SCH ×2 (03:36→19:13)
[2018-09-30 04:00] VITALS: BP 184/97
[2018-09-30] MEDS: CLONIDINE 0.2MG TABLET PO SCH ×4 (06:00→21:51)
[2018-09-30] MEDS: HYDRALAZINE HCL 100MG TABLET PO SCH ×4 (06:00→21:51)
[2018-09-30] MEDS: NIFEDIPINE XL 60MG TAB PO SCH ×2 (09:00→21:00)
[2018-09-30] MEDS: DOCUSATE SODIUM 100MG CAPSULE PO SCH ×2 (09:00→18:14)
[2018-09-30 10:02] LABS: BASOPHILS % 0.8 % (0.0-2.0); EOSINOPHILS % 1.1 % (0.0-5.0); HEMOGLOBIN. 14.9 g/dL (14.0-18.0); LYMPHOCYTES % 18.9 % (20.0-50.0); MEAN CORPUSCULAR HEMOGLOBIN 27.7 pg (28.0-32.0); MEAN CORPUSCULAR VOLUME 83.8 fL (80.0-94.0); MEAN PLATELET VOLUME 9.8 fl (7.4-10.4); MONOCYTES % 5.9 % (2.0-8.0); NEUTROPHILS % 73.3 % (40.0-76.0); PLATELET 192 x1000/uL (130-400); RED BLOOD CELL COUNT 5.37 mill/uL (4.7-6.1); RED CELL DISTRIBUTION WIDTH 15.2 % (11.6-14.6)
[2018-09-30] MEDS: ASPIRIN 81MG EC TABLET PO SCH (10:33)
[2018-09-30] MEDS: LOSARTAN POTASSIUM 50 MG TABLET PO SCH ×2 (10:33→17:00)
[2018-09-30] MEDS: CLOPIDOGREL 75MG TABLET PO SCH (10:33)
[2018-09-30] MEDS: CARVEDILOL 6.25 MG TABLET PO SCH ×2 (10:34→21:00)
[2018-09-30] MEDS: SERTRALINE HCL 25MG TABLET PO SCH (10:34)
[2018-09-30 10:46] LABS: CHLORIDE 106 mEq/L (98-107)
[2018-09-30 12:14] VITALS: BP 128/81
[2018-09-30 16:24] VITALS: BP 118/66
[2018-09-30] MEDS: ENOXAPARIN 40MG/0.4ML SYR SUBCUT SCH (18:15)
[2018-09-30 20:39] VITALS: BP 138/86
[2018-09-30] MEDS: ATORVASTATIN CALCIUM 10MG TABLET PO SCH (21:00)
[2018-09-30] MEDS: POLYETHYLENE GLYCOL 3350 (17GM) 1 DOSE PACK PO SCH (21:00)
[2018-09-30] MEDS: LACTULOSE 20G/30ML UDC PO SCH (21:00)
[2018-10-01 00:35] VITALS: BP 142/83
[2018-10-01 04:00] VITALS: BP 152/92
[2018-10-01] MEDS: HYDRALAZINE HCL 100MG TABLET PO SCH (05:13)
[2018-10-01] MEDS: CLONIDINE 0.2MG TABLET PO SCH (05:13)
[2018-10-01] MEDS: SODIUM CHLORIDE 0.45% 1,000 ML IV SCH (05:34)
[2018-10-01 08:26] VITALS: BP 172/96
[2018-10-01] MEDS ORDERED: HYDR100T26 MT (09:53)
[2018-10-01] MEDS ORDERED: LOSA50TA20 MT (09:54)
[2018-10-01] MEDS ORDERED: CARV6.2548 MT (09:54)
[2018-10-01] MEDS ORDERED: SERT25TA74 MT (09:55)
[2018-10-01] MEDS ORDERED: CLON0.2T MT (09:55)
[2018-10-01] MEDS ORDERED: NIFE60TA64 MT (09:56)
[2018-10-01] MEDS ORDERED: ATOR40TA70 MT (09:57)
[2018-10-01 10:00] VITALS: BP 152/89
[2018-10-01] MEDS: SERTRALINE HCL 25MG TABLET PO SCH (10:15)
[2018-10-01] MEDS: CLOPIDOGREL 75MG TABLET PO SCH (10:15)
[2018-10-01] MEDS: LOSARTAN POTASSIUM 50 MG TABLET PO SCH (10:16)
[2018-10-01] MEDS: CARVEDILOL 6.25 MG TABLET PO SCH (10:16)
[2018-10-01] MEDS: DOCUSATE SODIUM 100MG CAPSULE PO SCH (10:16)
[2018-10-01] MEDS: NIFEDIPINE XL 60MG TAB PO SCH (10:17)
[2018-10-01] MEDS: ENOXAPARIN 40MG/0.4ML SYR SUBCUT SCH (10:17)
[2018-10-01] MEDS: ASPIRIN 81MG EC TABLET PO SCH (10:17)
== END 2018-10-01 11:47 | disposition home health service (06) | DRG 45 ==
LOC: ER 19:20 → 6WST 09-15 00:01 → EDBEDREQTM 09-15 00:08 → EDBEDREQDT 09-15 00:08 → EDBEDREQ 09-15 00:08 → ENRESERV 09-15 01:37 → 6WST 09-15 04:30
PROVIDERS: ADMIT Internal Medicine; ATTEND Internal Medicine
DX: I63.9 Cerebral infarction, unspecified (principal); G82.50 Quadriplegia, unspecified; G93.40 Encephalopathy, unspecified; I66.23 Occlusion and stenosis of bilateral posterior cerebral arteries; I42.9 Cardiomyopathy, unspecified; R13.10 Dysphagia, unspecified; R47.01 Aphasia; E78.00 Pure hypercholesterolemia, unspecified; E87.6 Hypokalemia; E78.5 Hyperlipidemia, unspecified; I25.10 Atherosclerotic heart disease of native coronary artery without angina pectoris; H57.89 Other specified disorders of eye and adnexa; R53.81 Other malaise; R26.9 Unspecified abnormalities of gait and mobility; Z86.73 Personal history of transient ischemic attack (TIA), and cerebral infarction without residual deficits; R26.89 Other abnormalities of gait and mobility; F32.9 Major depressive disorder, single episode, unspecified; H02.401 Unspecified ptosis of right eyelid; I12.9 Hypertensive chronic kidney disease with stage 1 through stage 4 chronic kidney disease, or unspecified chronic kidney disease; K56.41 Fecal impaction; N18.9 Chronic kidney disease, unspecified; Z82.49 Family history of ischemic heart disease and other diseases of the circulatory system; Z91.19 Patient's noncompliance with other medical treatment and regimen; I25.2 Old myocardial infarction; Z95.5 Presence of coronary angioplasty implant and graft; R00.0 Tachycardia, unspecified
CPT/HCPCS: 36415; 36600; 70496; 70498; 70551; 71045; 74018; 80048; 80061; 80307; 81400; 81403; 81407; 81479; 82140; 82375; 82550; 82553; 82607; 82746; 82805; 83036; 83735; 83880; 84439; 84443; 84481; 84484; 85300; 85303; 85306; 85379; 85613; 85732; 86147; 92523; 92610; 93005; 93306; 93970; 96365; 97116; 97163; 97167; 97530; 97535; 99285; A9577; C1893; J0360; J1650; J2060; J3420; J3480; J3490; J7030; J7040; J7060; Q9967